=== PATIENT | female | born 1965 | race Caucasian/White ===

== ENCOUNTER 2017-06-29 17:56 | Inpatient (IN) | payer OTHER ==
[~2017-06-29] VITALS: Ht 165.1 cm; Wt 84.6 kg
[~2017-06-29 17:56] MED LIST: ALEVE220 MG PO; CYCLOBENZAPRINE10 MG PO; TRAMADOL HCL50 MG PO; ULTRAM50 MG PO
[2017-06-29 19:00] VITALS: BP 139/63
[2017-06-29 19:34] VITALS: BP 139/63
[2017-06-29] MEDS ORDERED: LIPITOR20 MG PO (19:40)
[2017-06-29] MEDS ORDERED: COZAAR50 MG PO (19:41)
[2017-06-29] MEDS ORDERED: GLUCOPHAGE XR,500 MG PO (19:42)
[2017-06-29] MEDS ORDERED: LEVAQUIN500 MG PO (19:44)
[2017-06-29] MEDS ORDERED: HYDROCODON-ACE1 EAC7 PO (19:44)
[2017-06-29 23:36] VITALS: BP 116/57
[2017-06-30 03:43] VITALS: BP 113/55
[2017-06-30 07:03] LABS: POINT-OF-CARE METER ID UU14117124
[2017-06-30 08:13] VITALS: BP 106/56
[2017-06-30 11:57] VITALS: BP 101/59
[2017-06-30 16:02] VITALS: BP 107/58
[2017-06-30 16:35] LABS: POINT-OF-CARE METER ID UU14117124
[2017-06-30 21:25] LABS: POINT-OF-CARE METER ID UU14117124
[2017-06-30 22:01] VITALS: BP 118/56
[2017-06-30 23:55] VITALS: BP 108/56
[2017-07-01 07:31] VITALS: BP 130/67
[2017-07-01 11:27] LABS: POINT-OF-CARE METER ID UU14117124
[2017-07-01 16:43] VITALS: BP 114/63
[2017-07-01 16:43] LABS: POINT-OF-CARE METER ID UU14117124
== END 2017-07-01 19:40 | DRG 53 ==
LOC: 3EAST 17:56 → ENRESERV 17:57 → 3EAST 18:55
PROVIDERS: Neurological Surgery
DX: G82.20 Paraplegia, unspecified (principal); M51.14 Intervertebral disc disorders with radiculopathy, thoracic region; Z98.890 Other specified postprocedural states; I10 Essential (primary) hypertension; E78.5 Hyperlipidemia, unspecified; E11.9 Type 2 diabetes mellitus without complications; E66.9 Obesity, unspecified; Z68.31 Body mass index [BMI] 31.0-31.9, adult; Z98.1 Arthrodesis status; Z79.84 Long term (current) use of oral hypoglycemic drugs
CPT/HCPCS: 72128; 82948; J1100; J1170; J1815; J3480